=== PATIENT | female | born 1980 | race Two or more races ===

== ENCOUNTER 2016-11-26 09:10 | Day surgery (SDC) | payer OTHER ==
[~2016-11-26] VITALS: Ht 172.7 cm; Wt 66.9 kg
[2016-11-26] MEDS ORDERED: [UNRECOGNIZED DRUG - REMARK] (10:12)
[2016-11-26] MEDS ORDERED: NAPROXEN (10:12)
[2016-11-26 10:13] VITALS: Ht 172.7 cm; Wt 66.9 kg
[2016-11-26 10:31] VITALS: BP 111/64; PULSE 85; RESP 18
[2016-11-26] MEDS ORDERED: MIDAZOLAM 1 MG/ML 2 ML INJ ONE ×3 (11:23)
[2016-11-26] MEDS ORDERED: FENTAnyl 50 MCG/ML VIAL ONE (11:23)
[2016-11-26 11:45] VITALS: BP 106/59; PULSE 81; RESP 18
--- NOTE | 2016-11-26 15:14 | GILP ---
DATE OF PROCEDURE: 11/26/2016 NAME OF PROCEDURE: Colonoscopy. SURGEON: Francis Choudhury MD PREOPERATIVE DIAGNOSES: 1. Change in bowel habit. 2. Rectal bleeding. POSTOPERATIVE DIAGNOSES 1. Colonoscopy all the way to the cecum. 2. Internal and external hemorrhoids. 3. No colitis or neoplasm was identified. INDICATION FOR THE PROCEDURE: Ms. Maria Fernanda Yap is a 36-year-old female patient who had rectal blee ding and change in the bowel habit. The patient was scheduled for colonoscopy for further evaluatio n. The procedure and possible complications are well explained to the patient. She understood and cons ented to the procedure. DESCRIPTION OF PROCEDURE: Under the influence of fentanyl and Versed, the colonoscope was carefully introduced in the rectum and under direct vision, it was advanced all the way to the cecum. FINDINGS: The patient had internal and external hemorrhoids. No colitis or neoplasm was identified . She tolerated the procedure very well and there was no complication from the procedure. At the end of the procedures, she was awake with stable vital signs and she was discharged home to the care of her family. IMPRESSION: Please see postoperative diagnoses. PLAN: Anusol-HC 2.5% cream b.i.d. p.r.n. Dictated By: FRANCIS MOTLEY/ASHIA Conf#: [id number] DID#: [id number]
== END 2016-11-26 13:16 | disposition home or self-care (01) ==
LOC: GIL 09:10
PROVIDERS: ATTEND Internal Medicine Gastroenterology
DX: R19.4 Change in bowel habit (principal); K64.8 Other hemorrhoids; K64.4 Residual hemorrhoidal skin tags
CPT/HCPCS: 45378; J2250; J3010